=== PATIENT | female | born 1995 | race African-American/Black ===

== ENCOUNTER 2022-03-31 21:10 | Emergency (ER) | payer BC, OTHER ==
[~2022-03-31] VITALS: Ht 170.2 cm; Wt 90.7 kg
[2022-03-31] MEDS ORDERED: KETOROLAC TROMETHAMINE 60 MG/2 ML VIAL IM ONE (21:45)
[2022-03-31] MEDS ORDERED: NAPROSYN500 MG PO (22:33)
[2022-03-31 22:56] VITALS: BP 118/94
== END 2022-03-31 22:50 | disposition home or self-care (01) ==
LOC: ER 21:34
DX: S83.8X1A Sprain of other specified parts of right knee, initial encounter (principal); Y93.67 Activity, basketball; Y92.310 Basketball court as the place of occurrence of the external cause; M25.461 Effusion, right knee
CPT/HCPCS: 29530; 73562; 99283; J1885